=== PATIENT | female | born 1995 | race Caucasian/White ===

== ENCOUNTER 2019-10-08 21:44 | Emergency (ER) | payer BC ==
[~2019-10-08] VITALS: Ht 172.7 cm; Wt 117.9 kg
--- OUTSIDE RECORDS SUMMARY | ~2019-10-08 | XMS | Encounter Summary ---
Demographics + + + | Address | [address] [place] [address] RD | | | [place] [address] | + + + | Home Phone | | + + + | Preferred Language | Unknown | + + + | Marital Status | Single | + + + | Yarsani Affiliation | Unknown | + + + | Race | Unknown | + + + | Ethnic Group | Unknown | + + + Author + + + | Author | [facility] | | | and [place] | + + + | Organization | [facility] | | | and [place] | + + + | Address | Unknown | + + + | Phone | Unavailable | + + + Support + + +---------+ + | Name | Relationship | Address | Phone | + + +---------+ + | Adalid Martino | ECON | Unknown | | + + +---------+ + | Ana Rosa juniorn | ECON | Unknown | | + + +---------+ + Care Team Providers + +------+ + | Care Title Curator Name | Role | Phone | + +------+ + PCP | Unavailable | + +------+ + Encounter Details +--------+ + + + + | Date | Type | Department | Care Team | Description | +--------+ + + + + | 10/10/ | Hospital | [facility] | Jordan Shahid | | | 2016 | Encounter | [facility] EM[facility] | [address] | | | | | [address] | [address] | | | | | [address] [place], [place] | [place] [address] | | | | | [address] | [phone] | | | | | [phone] | | | +--------+ + + + + Social History + +-------+ +--------+------+ | Tobacco Use | Types | Packs/Day | Years | Date | | | | | Used | | + +-------+ +--------+------+ | Never Assessed | | | | | + +-------+ +--------+------+ + + + | Sex Assigned at | Date Recorded | | | | + + + | Not on file | | + + + + + + + | Job Start Date | Occupation | Industry | + + + + | Not on file | Not on file | Not on file | + + + + + + + + | Travel History | Travel Start | Travel End | + + + + + + | No recent travel history available. | + + documented as of this encounter Plan of Treatment Not on filedocumented as of this encounter Procedures + +--------+ + + + | Procedure Name | Priori | Date/Time | Associated Diagnosis | Comments | | | ty | | | | + +--------+ + + + | STREPTOCOCCUS GROUP | STAT | 10/11/2015 | | Results for this | | A, RAPID SCREEN | | 7:17 AM | | procedure are in the | | | | PDT | | results section. | + +--------+ + + + documented in this encounter Results Streptococcus Group A, Rapid Screen (10/11/2015 7:17 AM PDT) + + + + + + | Component | Value | Ref Range | Performed | Pathologist | | | | | At | Signature | + + + + + + | STREP GROUP | NEGATIVE | NEGATIVE | EXTERNAL | | | A ANTIGEN | | | LAB | | + + + + + + | Internal QC | POSITIVE | POSITIVE | EXTERNAL | | | | | | LAB | | + + + + + + | Reflex | YES | | EXTERNAL | | | | | | LAB | | + + + + + + + + | Specimen | + + | | + + + +---------+ + + | Performing | Address | City/State/Zipcode | Phone Number | | Organization | | | | + +---------+ + + | EXTERNAL LAB | | | | + +---------+ + + documented in this encounter Visit Diagnoses Not on filedocumented in this encounter"
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
--- OUTSIDE RECORDS SUMMARY | ~2019-10-08 | XMS | Clinical Summary ---
Demographics + + + | Address | [address] [place] [address] RD | | | [place] [address] | + + + | Home Phone | | + + + | Preferred Language | Unknown | + + + | Marital Status | Single | + + + | Orthodoxy Affiliation | Unknown | + + + | Race | Unknown | + + + | Ethnic Group | Unknown | + + + Author + + + | Author | [facility] | | | and [place] | + + + | Organization | [facility] | | | and [...] Team Providers + +------+ + | Care Scaffold Worker Name | Role | Phone | + [...] fracture | | | | | | ([facility]) (Primary Dx); | | | | [...] +---------+------+ | [place] | [id number] | 04/05/ | [phone] | | [place] | | | [place] [...] Person | Self | [birth year] | | [address] | | | al/Fam | | 1995 | [phone] | [place] [address] | | | jaya | | | 2 (Home) | | + +--------+ +--------+ + + Advance Directives + + + + + | Type | Date Recorded | Patient | Explanation | | | | University Internship | | + + + + + | Power of | | | | | Accounts Receivable Representative | | | | + + + + + | Advance | 10/06/2019 5:27 | | | | Directive | PM | | | + + + + +
--- OUTSIDE RECORDS SUMMARY | ~2019-10-08 | XMS | Encounter Summary ---
Demographics + + + | Address | [address] [place] [address] RD | | | [place] [address] | + + + | Home Phone | | + + + | Preferred Language | Unknown | + + + | Marital Status | Single | + + + | Jew Affiliation | Unknown | + + + | Race | Unknown | + + + | Ethnic Group | Unknown | + + + Author + + + | Author | [facility] | | | and [place] | + + + | Organization | [facility] | | | and Marbinana [...] Team Providers + +------+ + | Care Motor And Generator Brush Maker Name | Role | Phone | + [...] | [address] [place], [place] | [place] [address] | for closed fracture | | | | [address] | [phone] | ([facility]) (Primary Dx); | | | | [phone] | | Multiple contusions | +--------+ + [...]
--- OUTSIDE RECORDS SUMMARY | ~2019-10-08 | XMS | Encounter Summary ---
Demographics + + + | Address | [address] [place] [address] RD | | | [place] [address] | + + + | Home Phone | | + + + | Preferred Language | Unknown | + + + | Marital Status | Single | + + + | Hindu Affiliation | Unknown | + + + | Race | Unknown | + + + | Ethnic Group | Unknown | + + + Author + + + | Author | [facility] | | | and [place] | + + + | Organization | [facility] | | | and [...] Team Providers + +------+ + | Care Senior Software Analyst Name | Role | Phone | + [...] | [address] [place], [place] | [place] [address] | | | | | [address] | [phone] | | | | | [phone] | | | +--------+ + + + [...]
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
[2019-10-08] MEDS ORDERED: HYDROCODON-ACE1 EA10 PO (21:59)
[2019-10-08] MEDS ORDERED: ZOFRAN4 MG PO (23:59)
== END 2019-10-09 00:11 | disposition home or self-care (01) ==
LOC: ED 21:44
DX: S06.0X0A Concussion without loss of consciousness, initial encounter (principal); S02.32XA Fracture of orbital floor, left side, initial encounter for closed fracture; Z88.5 Allergy status to narcotic agent; Z79.899 Other long term (current) drug therapy; V86.69XA Passenger of other special all-terrain or other off-road motor vehicle injured in nontraffic accident, initial encounter
CPT/HCPCS: 70450; 72125; 99284-25

== ENCOUNTER 2022-05-19 17:38 | Emergency (ER) | payer OTHER ==
[~2022-05-19] VITALS: Ht 172.7 cm; Wt 131.5 kg
[~2022-05-19 17:38] MED LIST: HYDROCODON-ACE1 EA10 PO; ZOFRAN4 MG PO
[2022-05-19] MEDS ORDERED: IMITREX25 MG PO (21:38)
== END 2022-05-19 23:53 | disposition home or self-care (01) ==
LOC: ED 17:38
DX: G43.909 Migraine, unspecified, not intractable, without status migrainosus (principal); Z88.5 Allergy status to narcotic agent; Z88.0 Allergy status to penicillin; Z79.899 Other long term (current) drug therapy
CPT/HCPCS: 96374; 96375; 99283-25; J0780; J1200; J1885; J7121

== ENCOUNTER 2022-12-03 13:41 | Observation (INO) | payer OTHER ==
[~2022-12-03] VITALS: Ht 172.7 cm; Wt 130.8 kg
--- OUTSIDE RECORDS SUMMARY | ~2022-12-03 | XMS | Continuity of Care Document ---
Demographics + + + | Address | [address] | | | [place] [address] | + + + | Preferred Language | Unknown | + + + | Marital Status | Never | + + + | Confucianism Affiliation | Unknown | + + + | Race | White | + + + | Ethnic Group | Not or | + + + Author + + + | Author | [facility] | + + + | Organization | [facility] | + + + | Address | [address] | | | [place] [address] | + + + | Phone | | + + + Care Team Providers + + + + | Care Kiln Door Repairer Name | Role | Phone | + + + + Unavailable | Unavailable | + + + + Unavailable | Unavailable | + + + + Allergies and Intolerances + + + + + | date | description | facility | type | + + + + + | (no date) | Codeine | [facility] (unknown[facility] | | + + + + + | (no date) | Penicillin g | [facility] | (unknown) | | | | Hospital | | + + + + + | (no date) | Morphine | [facility] | (unknown) | | | | Hospital | | + + + + + | (no date) | Codeine | [facility] | (unknown) | | | | Hospital | | + + + + + | (no date) | Vomiting | [facility] | (unknown) | | | | Hospital | | + + + + + | (no date) | Morphine | [facility] | (unknown) | | | | [facility] | | + + + + + | (no date) | Morphine | [facility] | (unknown) | | | | Hospital | | + + + + + | (no date) | Penicillin g | [facility] | (unknown) | | | | Hospital | | + + + + + | (no date) | morphine | [facility] | (unknown) | + + + + + | (no date) | codeine | [facility] | (unknown) | + + + + + | (no date) | penicillin G | [facility] | (unknown) | + + + + + | (no date) | [facility] g [facility] | | | Hospital | | + + + + + | (no date) | Codeine | [facility] | (unknown) | | | | Hospital | | + + + + + Encounters No information. Functional Status No information. Immunizations No information. Medications + + + + | date | description | facility | + + + + | 2022-05-19 00:00 | SUMATRIPTAN SUCCINATE | [facility] | + + + + | 2022-11-25 00:00 | SUMATRIPTAN SUCCINATE | [facility] | + + + + | 2022-11-25 00:00 | FLUOXETINE HCL | [facility] | + + + + | 2022-11-25 00:00 | ONDANSETRON | [facility] | + + + + | 2022-11-25 00:00 | TRAMADOL HCL | [facility] | + + + + Problems + + + + | date | description | facility | + + + + | 2015-05-26 00:00 | History of frequent | [facility] | | | headaches | | + + + + | 2015-05-26 00:00 | Temporal headache | [facility] | + + + + | 2019-10-08 00:00 | Fracture of left orbital | [facility] | | | floor | | + + + + | 2019-10-08 00:00 | Concussion | [facility] | + + + + | 2022-05-19 00:00 | Migraine headache | [facility] | + + + + | 2022-11-25 00:00 | Teratoma of left ovary | [facility] | + + + + | 2022-11-25 08:06 | BENIGN NEOPLASM OF LEFT | [facility] | | | OVARY | | + + + + | 2022-11-25 08:06 | UNSPECIFIED ABDOMINAL PAIN | [facility] | | | | | + + + + | 2022-11-25 08:06 | ALLERGY STATUS TO | [facility] | | | PENICILLIN | | + + + + | 2022-11-25 08:06 | ALLERGY STATUS TO NARCOTIC | [facility] | | | AGENT STATUS | | + + + + | 2022-12-02 20:39 | BENIGN NEOPLASM OF LEFT | [facility] | | | OV[facility] | | + + + + | 2022-12-02 20:39 | HEPATOMEGALY, NOT | [facility] | | | ELSEWHERE CLASSIFIED | | + + + + | 2022-12-06 07:00 | HEPATOMEGALY, NOT | [facility] | | | ELSEWHERE CLASSIFIED | | + + + + | 2022-12-09 11:00 | BENIGN NEOPLASM OF LEFT | [facility] | | | OV[facility] | | + + + + | 2022-12-09 11:00 | ABNORMAL UTERINE AND | [facility] | | | VAGINAL BLEEDING, U | | + + + + | 2022-12-09 11:00 | ACQUIRED ABSENCE OF | [facility] | | | OVARIES, UNILATERAL | | + + + + Procedures No information. Results/Labs +--------+--------+ + +---------+--------+ + | test | date | author | facility | value | unit | | | | | | | | | interpreta | | | | | | | | tion | +--------+--------+ + +---------+--------+ + + + | Result panel 1 | + + + + + + +---------+ + + | (unknown) | (no date) | (unknown) | [facility] (no | [facility]units | (unknown) | | [facility] | [facility] | [facility] | | | | + + + + +---------+ + + + + | Result panel 2 | + + + + + + +---------+ + + | (unknown) | (no date) | (unknown) | [facility] | (no | (units | (unknown) | | | | [facility] | value) | unknown) | | | | | [facility] | | | | + + + + +---------+ + + + + | Result panel 3 | + + + + + + +---------+ + + | (unknown) | (no date) | (unknown) | [facility] | (no | (units | (unknown) | | | | [facility] | value) | unknown) | | | | | [facility] | | | | + + + + +---------+ + + + + | Result panel 4 | + + + + + + +---------+ + + | (unknown) | (no date) | (unknown) | [facility] | (no | (units | (unknown) | | | | [facility] | value) | unknown) | | | | | [facility] | | | | + + + + +---------+ + + + + | Result panel 5 | + + + + + + +---------+ + + | (unknown) | (no date) | (unknown) | [facility] | (no | (units | (unknown) | | | | [facility] | value) | unknown) | | | | | [facility] | | | | + + + + +---------+ + + + + | Result panel 6 | + + + + + + +---------+ + + | (unknown) | (no date) | (unknown) | [facility] | (no | (units | (unknown) | | | | [facility] | value) | unknown) | | | | | [facility] | | | | + + + + +---------+ + + + + | Result panel 7 | + + + + + + +---------+ + + | (unknown) | (no date) | (unknown) | [facility] | (no | (units | (unknown) | | | | [facility] | value) | unknown) | | | | | [facility] | | | | + + + + +---------+ + + + + | Result panel 8 | + + + + + + +---------+ + + | (unknown) | (no date) | (unknown) | [facility] | (no | (units | (unknown) | | | | [facility] | value) | unknown) | | | | | [facility] | | | | + + + + +---------+ + + + + | Result panel 9 | + + + + + + +---------+ + + | (unknown) | (no date) | (unknown) | [facility] | (no | (units | (unknown) | | | | [facility] | value) | unknown) | | | | | [facility] | | | | + + + + +---------+ + + + + | Result panel 10 | + + + + + + +---------+ + + | (unknown) | (no date) | (unknown) | [facility] | (no | (units | (unknown) | | | | [facility] | value) | [facility]) | | | | | [facility] | | | | + + + + +---------+ + + + + | Result panel 11 | + + + + + + +---------+ + + | (unknown) | (no date) | (unknown) | [facility] | (no | (units | (unknown) | | | | [facility] | value) | unknown) | | | | | [facility] | | | | + + + + +---------+ + + + + | Result panel 12 | + + + + + + +---------+ + + | (unknown) | (no date) | (unknown) | [facility] | (no | (units | (unknown) | | | | [facility] | value) | unknown) | | | | | [facility] | | | | + + + + +---------+ + + + + | Result panel 13 | + + + + + + +---------+ + + | (unknown) | (no date) | (unknown) | [facility] | (no | (units | (unknown) | | | | [facility] | value) | unknown) | | | | | [facility] | | | | + + + + +---------+ + + + + | Result panel 14 | + + + + + + +---------+ + + | (unknown) | (no date) | (unknown) | [facility] | (no | (units | (unknown) | | | | [facility] | value) | unknown) | | | | | [facility] | | | | + + + + +---------+ + + + + | Result panel 15 | + + + + + + +---------+ + + | (unknown) | (no date) | (unknown) | [facility] | (no | (units | (unknown) | | | | [facility] | value) | unknown) | | | | | [facility] | | | | + + + + +---------+ + + + + | Result panel 16 | + + + + + + +---------+ + + | (unknown) | (no date) | (unknown) | [facility] | (no | (units | (unknown) | | | | [facility] | value) | unknown) | | | | | [facility] | | | | + + + + +---------+ + + + + | Result panel 17 | + + + + + + +---------+ + + | (unknown) | (no date) | (unknown) | [facility] | (no | (units | (unknown) | | | | [facility] | value) | unknown) | | | | | [facility] | | | | + + + + +---------+ + + + + | Result panel 18 | + + + + + + +---------+ + + | (unknown) | (no date) | (unknown) | [facility] | (no | (units | (unknown) | | | | [facility] | value) | unknown) | | | | | [facility] | | | | + + + + +---------+ + + + + | Result panel 19 | + + + + + + +---------+ + + | (unknown) | (no date) | (unknown) | [facility] | (no | (units | (unknown) | | | | [facility] | value) | unknown) | | [facility] | | [facility] | | | | + + + + +---------+ + + + + | Result panel 20 | + + + + + + +---------+ + + | (unknown) | (no date) | (unknown) | [facility] | (no | (units | (unknown) | | | | [facility] | value) | unknown) | | | | | [facility] | | | | + + + + +---------+ + + + + | Result panel 21 | + + + + + + +---------+ + + | (unknown) | (no date) | (unknown) | [facility] | (no | (units | (unknown) | | | | [facility] | value) | unknown) | | [facility] | | [facility] | | | | + + + + +---------+ + + + + | Result panel 22 | + + + + + + +---------+ + + | (unknown) | (no date) | (unknown) | [facility] | (no | (units | (unknown) | | | | [facility] | value) | unknown) | | | | | [facility] | | | | + + + + +---------+ + + + + | Result panel 23 | + + + + + + +---------+ + + | (unknown) | (no date) | (unknown) | [facility] | (no | (units | (unknown) | | | | [facility] | value) | unknown) | | | | | [facility] | | | | + + + + +---------+ + + + + | Result panel 24 | + + + + + + +---------+ + + | (unknown) | (no date) | (unknown) | [facility] | (no | (units | (unknown) | | | | [facility] | value) | unknown) | | | | | [facility] | | | | + + + + +---------+ + + + + | Result panel 25 | + + + + + + +---------+ + + | (unknown) | (no date) | (unknown) | [facility] | (no | (units | (unknown) | | | | [facility] | value) | unknown) | | | | | [facility] | | | | + + + + +---------+ + + + + | Result panel 26 | + + + + + + +---------+ + + | (unknown) | (no date) | (unknown) | [facility] | (no | (units | (unknown) | | | | [facility] | value) | unknown) | | | | | [facility] | | | | + + + + +---------+ + + + + | Result panel 27 | + + + + + + +---------+ + + | (unknown) | (no date) | (unknown) | [facility] | (no | (units | (unknown) | | | | [facility] | value) | unknown) | | | | | [facility] | | | | + + + + +---------+ + + + + | Result panel 28 | + + + + + + +---------+ + + | (unknown) | (no date) | (unknown) | [facility] | (no | (units | (unknown) | | | | [facility] | value) | unknown) | | | | | [facility] | | | | + + + + +---------+ + + + + | Result panel 29 | + + + + + + +---------+ + + | (unknown) | (no date) | (unknown) | [facility] | (no | (units | (unknown) | | | | [facility] | value) | unknown) | | [facility] | | [facility] | | | | + + + + +---------+ + + + + | Result panel 30 | + + + + + + +---------+ + + | (unknown) | (no date) | (unknown) | [facility] | (no | (units | (unknown) | | | | [facility] | value) | unknown) | | | | [facility] | | | | + + + + +---------+ + + + + | Result panel 31 | + + + + + + +---------+ + + | (unknown) | (no date) | (unknown) | [facility] | (no | (units | (unknown) | | | | [facility] value) | [facility]) | | [facility] | [facility] | | | | + + + + +---------+ + + + + | Result panel 32 | + + + + + + +---------+ + + | (unknown) | (no date) | (unknown) | [facility] | (no | (units | (unknown) | | | | [facility] | value) | unknown) | | | | | [facility] | | | | + + + + +---------+ + + + + | Result panel 33 | + + + + + + +---------+ + + | (unknown) | (no date) | (unknown) | [facility] | (no | (units | (unknown) | | | | [facility] | value) | unknown) | | | | | [facility] | | | | + + + + +---------+ + + + + | Result panel 34 | + + + + + + +---------+ + + | (unknown) | (no date) | (unknown) | [facility] | (no | (units | (unknown) | | | | [facility] | value) | unknown) | | [facility] | | [facility] | | | | + + + + +---------+ + + + + | Result panel 35 | + + + + + + +---------+ + + | (unknown) | (no date) | (unknown) | [facility] | (no | (units | (unknown) | | | | [facility] | value) | unknown) | | | | | [facility] | | | | + + + + +---------+ + + + + | Result panel 36 | + + + + + + +---------+ + + | (unknown) | (no date) | (unknown) | [facility] | (no | (units | (unknown) | | | | [facility] | value) | unknown) | | | | | [facility] | | | | + + + + +---------+ + + + + | Result panel 37 | + + + + + + +---------+ + + | (unknown) | (no date) | (unknown) | [facility] | (no | (units | (unknown) | | | | [facility] | value) | unknown) | | | | | [facility] | | | | + + + + +---------+ + + + + | Result panel 38 | + + + + + + +---------+ + + | (unknown) | (no date) | (unknown) | [facility] | (no | (units | (unknown) | | | | [facility] | value) | unknown) | | | | | [facility] | | | | + + + + +---------+ + + + + | Result panel 39 | + + + + + + +---------+ + + | (unknown) | (no date) | (unknown) | [facility] | (no | (units | (unknown) | | [facility] | [facility] | value) | unknown) | | | | | [facility] | | | | + + + + +---------+ + + + + | Result panel 40 | + + + + + + +---------+ + + | (unknown) | (no date) | (unknown) | [facility] | (no | (units | (unknown) | | | | [facility] | value) | unknown) | | | | | [facility] | | | | + + + + +---------+ + + + + | Result panel 41 | + + + + + + +---------+ + + | (unknown) | (no date) | (unknown) | [facility] | (no | (units | (unknown) | | | | [facility] | value) | unknown) | | | | | [facility] | | | | + + + + +---------+ + + + + | Result panel 42 | + + + + + + +---------+ + + | (unknown) | (no date) | (unknown) | [facility] | (no | (units | (unknown) | | | | [facility] | value) | unknown) | | | | | [facility] | | | | + + + + +---------+ + + + + | Result panel 43 | + + + + + + +---------+ + + | (unknown) | (no date) | (unknown) | [facility] | (no | (units | (unknown) | | | | [facility] | value) | unknown) | | | | | [facility] | | | | + + + + +---------+ + + + + | Result panel 44 | + + + + + + +---------+ + + | (unknown) | (no date) | (unknown) | [facility] | (no | (units | (unknown) | | | | [facility] | value) | unknown) | | | | [facility] | | | | + + + + +---------+ + + + + | Result panel 45 | + + + + + + +---------+ + + | (unknown) | (no date) | (unknown) | [facility] | (no | (units | (unknown) | | | | [facility] | value) | [facility]) | | | | [facility] | | | | + + + + +---------+ + + + + | Result panel 46 | + + + + + + +---------+ + + | (unknown) | (no date) | (unknown) | [facility] | (no | (units | (unknown) | | [facility] | [facility] | value) | unknown) | | | | [facility] | | | | + + + + +---------+ + + + + | Result panel 47 | + + + + + + +---------+ + + | (unknown) | (no date) | (unknown) | [facility] | (no | (units | (unknown) | | | | [facility] | value) | [facility]) | | | | [facility] | | | | + + + + +---------+ + + + + | Result panel 48 | + + + + + + +---------+ + + | (unknown) | (no date) | (unknown) | [facility] | (no | (units | (unknown) | | | | [facility] | value) | unknown) | | | | [facility] | | | | + + + + +---------+ + + + + | Result panel 49 | + + + + + + +---------+ + + | (unknown) | (no date) | (unknown) | [facility] | (no | (units | (unknown) | | | | [facility] | value) | [facility]) | | | | [facility] | | | | + + + + +---------+ + + + + | Result panel 50 | + + + + + + +---------+ + + | (unknown) | (no date) | (unknown) | [facility] | (no | (units | (unknown) | | | | [facility] | value) | unknown) | | | | [facility] | | | | + + + + +---------+ + + + + | Result panel 51 | + + + + + + +---------+ + + | (unknown) | (no date) | (unknown) | [facility] | (no | (units | (unknown) | | | | [facility] | value) | unknown) | | | | [facility] | | | | + + + + +---------+ + + + + | Result panel 52 | + + + + + + +---------+ + + | (unknown) | (no date) | (unknown) | [facility] | (no | (units | (unknown) | | | | [facility] value) | [facility]) | | | | [facility] | | | | + + + + +---------+ + + + + | Result panel 53 | + + + + + + +---------+ + + | (unknown) | (no date) | (unknown) | [facility] | (no | (units | (unknown) | | | | [facility] | value) | [facility]) | | | | [facility] | | | | + + + + +---------+ + + + + | Result panel 54 | + + + + + + +---------+ + + | (unknown) | (no date) | (unknown) | [facility] | (no | (units | (unknown) | | | | [facility] | value) | unknown) | | | | [facility] | | | | + + + + +---------+ + + + + | Result panel 55 | + + + + + + +---------+ + + | (unknown) | (no date) | (unknown) | [facility] | (no | (units | (unknown) | | | [facility] value) | [facility]) | | | [facility] | | | | + + + + +---------+ + + Social History No information. Vital Signs + + + +---------+ | date | measurement | value | units | + + + +---------+ | 2022-05-19 00:00 | BMI | 44.1 | kg/m2 | + + + +---------+ | 2022-05-19 00:00 | BP_diastolic | 68 | mmHg | + + + +---------+ | 2022-05-19 00:00 | BP_systolic | 128 | mmHg | + + + +---------+ | 2022-05-19 00:00 | heart_rate | 90 | /min | + + + +---------+ | 2022-05-19 00:00 | height_metric | 172.72 | cm | + + + +---------+ | 2022-05-19 00:00 | height_standard | 68 | in | + + + +---------+ | 2022-05-19 00:00 | o2_saturation | 100 | % | + + + +---------+ | 2022-05-19 00:00 | respiration_rate | 15 | /min | + + + +---------+ | 2022-05-19 00:00 | temperature_metric | 36.39 | C | | | | | | + + + +---------+ | 2022-05-19 00:00 | | 97.5 | F | | | temperature_standar | | | | | d | | | + + + +---------+ | 2022-05-19 00:00 | weight_metric | 131.54 | kg | + + + +---------+ | 2022-05-19 00:00 | weight_standard | 290 | lb | + + + +---------+ | 2022-11-25 00:00 | BMI | 42.8 | kg/m2 | + + + +---------+ | 2022-11-25 00:00 | BP_diastolic | 64 | mmHg | + + + +---------+ | 2022-11-25 00:00 | BP_systolic | 110 | mmHg | + + + +---------+ | 2022-11-25 00:00 | heart_rate | 77 | /min | + + + +---------+ | 2022-11-25 00:00 | height_metric | 172.72 | cm | + + + +---------+ | 2022-11-25 00:00 | height_standard | 68 | in | + + + +---------+ | 2022-11-25 00:00 | o2_saturation | 99 | % | + + + +---------+ | 2022-11-25 00:00 | respiration_rate | 20 | /min | + + + +---------+ | 2022-11-25 00:00 | temperature_metric | 36.83 | C | | | | | | + + + +---------+ | 2022-11-25 00:00 | | 98.3 | F | | | temperature_standar | | | | | d | | | + + + +---------+ | 2022-11-25 00:00 | weight_metric | 127.8 | kg | + + + +---------+ | 2022-11-25 00:00 | weight_standard | 281.75 | lb | + + + +---------+"
--- OUTSIDE RECORDS SUMMARY | ~2022-12-03 | XMS | Continuity of Care Document ---
Demographics + + + | Address | [address] | | | [place] [address] | + + + | Preferred Language | Unknown | + + + | Marital Status | Never | + + + | Buddhism Affiliation | Unknown | + + + | Race | White | + + + | Ethnic Group | Not or | + + + Author + + + | Author | [facility] | + + + | Organization | [facility] | + + + | Address | [address] | | | [place] [address] | + + + | Phone | | + + + Care Team Providers + + + + | Care Development Scientist Name | Role | Phone | + + + + Unavailable | Unavailable | + + + + Unavailable | Unavailable | + + + + Allergies and Intolerances + + + + + | date | description | facility | type | + + + + + | (no date) | Codeine | [facility] (unknown) [facility] | | + + + + + | (no date) | Penicillin g | [facility] | (unknown) | | | | [facility] | | + + + + + | (no date) | Morphine | [facility] | (unknown) | | | | Hospital | | + + + + + | (no date) | Codeine | [facility] | (unknown) | | | | Hospital | | + + + + + | (no date) | Vomiting | [facility] | (unknown) | | | | Hospital | | + + + + + | (no date) | Morphine | [facility] | (unknown) | | | | [facility] | | + + + + + | (no date) | Morphine | [facility] | (unknown) | | | | Hospital | | + + + + + | (no date) | Penicillin g | [facility] | (unknown) | | | | Hospital [...] | (no date) | Pen[facility] g | [facility] ([facility] | | | [facility] | | + + + + + | (no date) | Codeine | [facility] | (unknown) | | | | Hospital | | + + + + + Encounters No information. Functional Status No information. Immunizations No information. Medications + + + + | date | description | facility | + + + + | 2022-05-19 00:00 | SUMATRIPTAN SUCCINATE | [facility] | + + + + | 2022-11-25 00:00 | SUMATRIPTAN SUCCINATE | [facility] | + + + + | 2022-11-25 00:00 | FLUOXETINE HCL | [facility] | + + + + | 2022-11-25 00:00 | ONDANSETRON | [facility] | + + + + | 2022-11-25 00:00 | TRAMADOL HCL | [facility] | + + + + Problems + + + + | date | description | facility | + + + + | 2015-05-26 00:00 | History of frequent | [facility] | | | headaches | | + + + + | 2015-05-26 00:00 | Temporal headache | [facility] | + + + + | 2019-10-08 00:00 | Fracture of left orbital | [facility] | | | floor | | + + + + | 2019-10-08 00:00 | Concussion | [facility] | + + + + | 2022-05-19 00:00 | Migraine headache | [facility] | + + + + | 2022-11-25 00:00 | Teratoma of left ovary | [facility] | + + + + | [...]
--- OUTSIDE RECORDS SUMMARY | ~2022-12-03 | XMS | Continuity of Care Document ---
Demographics + + + | Address | [address] | | | [place] [address] | + + + | Preferred Language | Unknown | + + + | Marital Status | Never | + + + | Holiness Affiliation | Unknown | + + + | Race | White | + + + | Ethnic Group | Not or | + + + Author + + + | Author | [facility] | + + + | Organization | [facility] | + + + | Address | [address] | | | [place] [address] | + + + | Phone | | + + + Care Team Providers + + + + | Care Family Services Assistant Name | Role | Phone | + + + + Unavailable | Unavailable | + + + + Unavailable | Unavailable | + + + + Allergies and Intolerances + + + + + | date | description | facility | type | + + + + + | (no date) | Codeine | [facility] | (unknown) | | | | Hospital | | + + + + + | (no date) | Penicillin g | [facility] | (unknown) | | | | Hospital | | + + + + + | (no date) | Morphine | [facility] | (unknown) | | | | Hospital | | + + + + + | (no date) | Codeine | [facility] | (unknown) | | | | Hospital | | + + + + + | (no date) | Vomiting | [facility] | (unknown) | | | | Hospital | | + + + + + | (no date) | Morphine | [facility] | (unknown) | | | | Hospital | | + + + + + | (no date) | Morphine | [facility] | (unknown) | | | | Hospital | | + + + + + | (no date) | Penicillin g | [facility] | (unknown) | | | | Hospital [...] | (no date) | [facility] | | + + + + + | (no date) | Codeine | [facility] | (unknown) | | | | Hospital | | + + + + + Encounters No information. Functional Status No information. Immunizations No information. Medications + + + + | date | description | facility | + + + + | 2022-05-19 00:00 | SUMATRIPTAN SUCCINATE | [facility] | + + + + | 2022-11-25 00:00 | SUMATRIPTAN SUCCINATE | [facility] | + + + + | 2022-11-25 00:00 | FLUOXETINE HCL | [facility] | + + + + | 2022-11-25 00:00 | ONDANSETRON | [facility] | + + + + | 2022-11-25 00:00 | TRAMADOL HCL | [facility] | + + + + Problems + + + + | date | description | facility | + + + + | 2015-05-26 00:00 | History of frequent | [facility] | | | headaches | | + + + + | 2015-05-26 00:00 | Temporal headache | [facility] | + + + + | 2019-10-08 00:00 | Fracture of left orbital | [facility] | | | floor | | + + + + | 2019-10-08 00:00 | Concussion | [facility] | + + + + | 2022-05-19 00:00 | Migraine headache | [facility] | + + + + | 2022-11-25 00:00 | Teratoma of left ovary | [facility] | + + + + | [...]
[~2022-12-03 13:41] MED LIST changes: +FLUOXETINE HCL20 M1 PO; +IMITREX25 MG PO; +ONDANSETRON ODT8 MG PO; +TRAMADOL HCL50 MG PO
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
[2022-12-04] VITALS (9 sets, daily range): BP systolic 103–131; BP diastolic 53–86
[2022-12-05 05:10] VITALS: BP 113/61
[2022-12-05 09:08] VITALS: BP 107/56
[2022-12-05 11:17] VITALS: BP 115/66
--- NOTE | 2022-12-09 13:07 | PATH ---
[facility] [address], [place] [address] Signed SPECIMEN(S): A LEFT OVARIAN DERMOID SPECIMEN(S): B ENDOMETRIAL CURETTINGS SPECIMEN SOURCE: A. LEFT OVARIAN DERMOID B. ENDOMETRIAL CURETTINGS CLINICAL HISTORY: Ovarian mass, possible torsion FINAL PATHOLOGIC DIAGNOSIS: A. 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 - Negative for atypical features. B. Endometrial curettings: - Secretory endometrium, negative for atypical features. JVR:[facility]:C2NR MICROSCOPIC EXAMINATION: Histologic sections of all submitted blocks are examined by light microscopy. These findings, together with the gross examination, support the pathologic diagnosis. GROSS DESCRIPTION: A. The specimen, labeled and designated "Gunner, A" and designated on the requisition "left ovarian dermoid," is received in formalin and consists of an intact biggs cyst (9.0 x 6.4 x 5.6 cm). The specimen is inked blue and serially sectioned to reveal a yellow-biggs malodorous grumous material with blond hair. The specimen has a wall thickness that ranges from 0.1 to 1.9 cm. The thickened areas of the cyst wall are sectioned to reveal yellow-biggs soft fatty cut surfaces. Interior Wall Assembler sections are submitted cassette A1-A4. B. The specimen, labeled and designated "Gunner, B" and designated on the requisition "[facility]," is received in formalin and consists of multiple fragments of pink-biggs soft tissue (2.5 x 1.5 x 0.5 cm in aggregate). The specimen is submitted entirely in cassette B1. AC (under the direct supervision of a pathologist) The Gross Description was prepared using a voice recognition system. The report was reviewed for accuracy; however, sound-alike word errors, addition and/or deletions may occur. If there is any PATIENT NAME: JOSÉ MACK PATHOLOGY DATE OF : [birth year] REPORT #: [id number] PHYSICIAN: KER[facility] PATHOLOGY PCP: BRANT THOMASON PA-C REPORT IS CONFIDENTIAL AND NOT TO BE RELEASED WITHOUT AUTHORIZATION [facility] [address], [place] [address] Signed question about this report, please contact Client Services. PERFORMING LABORATORY: Technical component was performed by [facility], [address] [place] [address] (CLIA# [id number]). Professional interpretation was performed by [facility], [address] [place] [id number] (CLIA#: [id number]). Diagnostician: Samm Greer MD Pathologist Electronically Signed 12/09/2022 Copies: ~ PATIENT NAME: JOSÉ MACK PATHOLOGY DATE OF : [birth year] REPORT #: [id number] PHYSICIAN: KERRI PATHOLOGY PCP: BRANT THOMASON PA-C REPORT IS CONFIDENTIAL AND NOT TO BE RELEASED WITHOUT AUTHORIZATION
--- NOTE | 2022-12-24 11:58 | OR ---
[facility] [address] [place] [address] Signed DATE OF OPERATION: 12/03/2022 SURGEON: Silvino Villanueva DO PREOPERATIVE DIAGNOSES: 1. Left ovarian mass, likely dermoid. 2. Possible ovarian torsion. 3. History of prior right salpingo-oophorectomy due to ovarian torsion. 4. Morbid obesity. 5. Abnormal uterine bleeding. POSTOPERATIVE DIAGNOSES: 1. Left ovarian mass, likely dermoid without evidence of torsion. 2. Pelvic and abdominal adhesions. 3. History of prior right salpingo-oophorectomy due to ovarian torsion. 4. Morbid obesity. 5. Abnormal uterine bleeding. PROCEDURES PERFORMED: 1. Abdominal left ovarian cystectomy. 2. Diagnostic laparoscopy. 3. Lysis of adhesion. 4. Pelvic washings. 5. Chromopertubation. 6. Hysteroscopy dilation and curettage. AUDIOLOGY DIRECTOR: Rhona Van DO. ANESTHESIA: General. ESTIMATED BLOOD LOSS: 100 mL. SPECIMEN: Left ovarian mass suspicious for benign mature dermoid. Endometrial curettings. FINDINGS: Normal external genitalia with normal clitoris, urethral meatus, bilateral [place]'s and Electronically Signed By: SILVINO VILLANUEVA DO (JD) 12/24/22 1158 PATIENT NAME: JOSÉ MACK OPERATIVE REPORT DATE OF : [birth year] REPORT #: [id number] PHYSICIAN: SILVINO VILLANUEVA DO (JD) PCP: BRANT THOMASON PA-C REPORT IS CONFIDENTIAL AND NOT TO BE RELEASED WITHOUT AUTHORIZATION [facility] [address] [place], [place] [address] Signed Bartholin's gland. On laparoscopy, dense omental adhesions to the anterior abdominal and pelvic wall. Grossly enlarged left ovary without evidence of torsion. Surgically absent right tube and ovary consistent with history. No peritoneal or other suspicious abdominal or pelvic masses. No evidence of endometriosis. The ovary was hemostatic at the following cholecystectomy and there is easy spillage of fluid through the left fallopian tube. On hysteroscopy, normal uterus with bilateral tubal ostia. COMPLICATIONS: None. INDICATIONS: Ms. Mack is a very pleasant 27-year-old G0 female with a history of new onset left ovarian mass. Patient with a history of right salpingo-oophorectomy in 2007, age 12 [address] Miles for dermoid cyst with ovarian torsion and nonviable right adnexa. Patient underwent ultrasound in January of 2022 for abnormal bleeding that demonstrated normal uterus and left ovary. She then presented to the emergency department in November of 2022 with abdominal pain, underwent CT scan that demonstrated a 7.5 cm left ovarian mass consistent with dermoid as well as three low attenuation liver lesions. The patient was seen in the office and surgery was scheduled and she was counseled that should she develop significant abdominal pain, she should present to the emergency department to prevent loss of her remaining ovary due to torsion. Patient presented to the emergency department today with significant increase in pain. Torsion was unable to be ruled out and decision was made to proceed with the procedure. Risks, benefits, and alternatives were discussed in detail. The patient understands and wished to proceed with procedure as discussed. TECHNIQUE: Patient was taken to the operative room where a time-out was performed to confirm correct patient and correct procedure. General anesthesia was adequately established. Patient was prepped and draped in dorsal lithotomy position with her feet in Yellofin stirrups. ICPs were on and running. Patient received Ancef 3 g as well as heparin 5000 units preoperatively. A weighted speculum was placed in the vagina after a Quinonez catheter was inserted. The anterior lip of the cervix was grasped with an Allis clamp and the cervix was gently dilated using Hegar dilators. A MyPermissions uterine manipulator was placed and attention was turned to the abdomen. Approximately 2 cm below the umbilicus, the skin was infiltrated with 0.25% Marcaine. An incision was made vertically through the prior laparotomy scar. The fascia was grasped, elevated, and entered sharply. Fascial edges were suture ligated with #0 Vicryl stay sutures and the peritoneum was entered bluntly. Jerrica operative port was placed and pneumoperitoneum was established. Significant abdominal omental adhesions were noted. Assist port was placed in the left lower quadrant and right lower quadrant under direct visualization. Omental adhesions were then dissected carefully using the LigaSure device. Attention was then turned to Electronically Signed By: SILVINO KNUTSON) DO PNENY 12/24/22 1158 PATIENT NAME: JOSÉ MACK OPERATIVE REPORT DATE OF : [birth year] REPORT #: [id number] PHYSICIAN: SILVINO VILLANUEVA) PCP: BRANT THOMASON PA-C REPORT IS CONFIDENTIAL AND NOT TO BE RELEASED WITHOUT AUTHORIZATION [facility] [address] [place] [id number] Signed the abdomen and pelvis. Pelvic and abdominal washings were performed and sent to pathology for further evaluation. No concerning findings for metastatic disease were noted. The pelvis was examined. The right tube and ovary were found to be surgically absent consistent with surgical history. Normal-appearing uterus, cul-de-sac with no evidence of endometriosis. The left adnexum was grossly enlarged that was not torsed. Careful laparoscopic evaluation of the mass demonstrated that cystectomy likely not be able to be successfully completed with straight-stick laparoscopy without risking spillage of cyst contents. As previously discussed, patient would like to avoid this for multiple reasons and decision was made to abandon laparoscopic procedure and proceed with laparotomy. Pneumoperitoneum was reduced. Trocars were removed and assist port sites were repaired with 4-0 Monocryl in a subcuticular stitch. Laparotomy was then performed using a surgical scalpel from the pubis to the infraumbilical incision. The fascial incision was extended using Bovie electrocautery. Rectus was divided bluntly and peritoneal incision was extended using sharp dissection. The left adnexum was mobilized and evaluated. The cyst was noted to be within the ovary with a small rim of ovarian stroma stretched across the majority of the surface of the ovary. A portion of the main corpus of the ovary was noted on the medial portion of the cyst wall. Surgical scalpel was used to score the ovarian stroma overlying the cyst and very careful blunt dissection was performed. The cyst was able to be coaxed from the underlying ovarian stroma intact and sent to pathology for further evaluation. The remaining ovary was made hemostatic with very judicious use of Bovie electrocautery and was sutured with 3-0 Vicryl with excellent hemostasis appreciated. The pelvis was irrigated, found to be hemostatic. Chromopertubation was then performed demonstrating easy spillage of the remaining left fallopian tube, which was also normal in appearance. The fascia and peritoneum were closed in a mass closure manner with 0 PDS in a running nonlocked manner. Fascial incision was reinforced with interrupted sutures of 0 Vicryl. The subcu was made hemostatic with judicious use of Bovie electrocautery and was closed in several layers of 3-0 Vicryl. The skin was then reapproximated with surgical jim with excellent cosmesis and hemostasis. Attention was then turned to hysteroscopy D and C. The uterine retractor was removed. Hysteroscope was then advanced under direct visualization through the cervix into the uterine cavity. Normal uterine cavity without masses and bilateral tubal ostia were appreciated. A MyoSure Lite was selected and circumferential curettage was performed and sent to pathology for further evaluation. Bleeding was scant. The hysteroscope and Allis clamp were removed and the patient received postoperative tap block. The patient was then taken to PACU in good and stable condition. Sponge, needle, and instrument count was correct x2 at the end the procedure. Dr. Van was present and participated in all portions of the procedure. Electronically Signed By: SILVINO VILLANUEVA DO (JD) 12/24/22 1158 PATIENT NAME: JOSÉ MACK OPERATIVE REPORT DATE OF : [birth year] REPORT #: [id number] PHYSICIAN: SILVINO VILLANUEVA DO (JD) PCP: BRANT THOMASON PA-C REPORT IS CONFIDENTIAL AND NOT TO BE RELEASED WITHOUT AUTHORIZATION [address] [address] Signed DO LOYD Ojeda/MIRIAM /[id number] Copies: ~ Electronically Signed By: SILVINO KNUTSON) DO PENNY 12/24/22 1158 PATIENT NAME: JOSÉ MACK OPERATIVE REPORT DATE OF : [birth year] REPORT #: [id number] PHYSICIAN: SILVINO VILLANUEVA DO (JD) PCP: BRANT THOMASON PA-C REPORT IS CONFIDENTIAL AND NOT TO BE RELEASED WITHOUT AUTHORIZATION
== END 2022-12-05 11:30 | disposition home or self-care (01) ==
LOC: ED 13:41 → MS 13:42
PROVIDERS: ADMIT Obstetrics & Gynecology; ATTEND Obstetrics & Gynecology
PROC: 0UB10ZZ Excision of Left Ovary, Open Approach (ICD-10-PCS; principal; 2022-12-03 21:34)
PROC: 0UDB8ZZ Extraction of Endometrium, Via Natural or Artificial Opening Endoscopic (ICD-10-PCS; 2022-12-03 21:34)
DX: D27.1 Benign neoplasm of left ovary (principal); E66.01 Morbid (severe) obesity due to excess calories; F32.A Depression, unspecified; N93.9 Abnormal uterine and vaginal bleeding, unspecified; Z88.5 Allergy status to narcotic agent; Z88.0 Allergy status to penicillin; Z79.899 Other long term (current) drug therapy
CPT/HCPCS: 00840; 36415; 76857; 76942; 80053; 81003; 83690; 84703; 85025; 85027; 88112; 88305; 88307; 96372; 99285 25; A9270; J0131; J0690; J1100; J1170; J1644; J1650; J1885; J2250; J2405; J2704; J2765; J3010; J7030; J7121